=== PATIENT | female | born 1985 | race Caucasian/White ===

== ENCOUNTER 2020-08-15 21:01 | Emergency (ER) | payer OTHER ==
[~2020-08-15] VITALS: Ht 149.9 cm; Wt 90.0 kg
[2020-08-15 21:03] VITALS: BP 179/94
--- NOTE | 2020-08-15 21:55 | RAD ---
Three-view right ankle radiographs 08/15/2020 CLINICAL HISTORY: Right ankle pain. AP, lateral and oblique digital radiographs of the right ankle were obtained. The right ankle mortise is intact. No fracture or dislocation of the right ankle is seen. IMPRESSION: No fracture or dislocation of the right ankle is seen. Electronically signed by: Yuosif Garcia MD (08/15/2020 9:52 PM) [id number]
--- NOTE | 2020-08-15 22:33 | RAD ---
Right lower extremity venous duplex study 08/15/2020 Clinical History: Right ankle swelling. Technique: Using a combination of real time ultrasound imaging and color-flow and pulse Doppler imaging techniques along with graded compression and augmentation, duplex evaluation of the deep venous system of the right lower extremity was performed. Multiple images were obtained. Findings: There is no sonographic evidence of deep venous thrombosis involving the visualized deep venous structures of the right lower extremity. Impression: Negative study. Electronically signed by: Yousif Garcia MD (08/15/2020 10:30 PM) [id number]
--- NOTE | 2020-08-15 22:44 | ED.ADGEN ---
Past Medical History Past Medical History: Anxiety, Depression, GERD, Kidney Stone, Migraines Past Surgical History: Cholecystectomy, Other Additional Past Surgical Histo: 3 C-SECTIONS, ENDOMETRIOSIS, HYSTERRECTOMY Smoking Status: Current Every Day Smoker Alcohol Use: Occasionally General Adult EDM: Chief Complaint: LOWER EXTREMITY SWELLING HPI: HPI: Patient is a 35 year old female, accompanied by her significant other, who presents to the emergency room with complaints of pain and swelling in her right lower leg and ankle. Patient reports that she woke up with these symptoms she also noticed a bruise on her inner right knee but denies any known injury or recent fall. She denies any history of blood clots. The patient denies any fever, cough, chest pain, shortness of breath, body aches, or fatigue. She sta park she has been able to ambulate but reports increased pain with ambulation. Patient currently rates her pain a 1 out of 10 on the pain scale, the pain increases if the area is touched or she bears weight. Review of Systems: Review of Systems: Complete ROS is negative unless otherwise noted in HPI. Allergies: Allergies: Allergies Coded Allergies Type Severity Reaction Last Updated Verified vancomycin Allergy Severe 08/15/20 Yes Physical Exam: PE: Constitutional: Well developed, well nourished, no acute distress, non-toxic appearance, obese. [] HENT: Normocephalic, atraumatic, bilateral external ears normal, nose normal. [] Eyes: PERRLA, EOMI, conjunctiva normal, no discharge. [] Neck: Normal range of motion, no stridor. [] Cardiovascular:Heart rate regular rhythm Lungs & Thorax: Respirations even and unlabored, no retractions, no respiratory distress Skin: Warm, dry, no erythema, no rash.; 2 cm diameter bruise noted to the medial right knee [] Extremities: Right ankle: Diffuse tenderness to palpation, no crepitus, no obvious deformity, no cyanosis, ROM intact, 1+ edema; right calf tenderness to palpation, 2+ pedal pulse 2+ posterior tibial pulse, cap refill less than 2 seconds Neurologic: Alert and oriented X 3, no focal deficits noted. [] Psychologic: Affect normal, judgement normal, mood normal. [] Current Patient Data: Vital Signs: Vital Signs Date Time Temp Pulse Resp B/P (MAP) Pulse Ox O2 Delivery O2 Flow Rate FiO2 08/15/20 21:03 97.6 86 20 179/94 (122) 98 Room Air 97.6 EKG: EKG: [] Heart Score: Risk Factors: Risk Factors: DM, Current or recent (<one month) smoker, HTN, HLP, family history of CAD, obesity. Risk Scores: Score 0 - 3: 2.5% MACE over next 6 weeks - Discharge Home Score 4 - 6: 20.3% MACE over next 6 weeks - Admit for Clinical Observation Score 7 - 10: 72.7% MACE over next 6 weeks - Early Invasive Strategies Radiology/Procedures: Radiology/Procedures: PROCEDURE: VENOUS LOWER EXTREMITY RIGHT Right lower extremity venous duplex study 08/15/2020 Clinical History: Right ankle swelling. Technique: Using a combination of real time ultrasound imaging and color-flow and pulse Doppler imaging techniques along with graded compression and augmentation, duplex evaluation of the deep venous system of the right lower extremity was performed. Multiple images were obtained. Findings: There is no sonographic evidence of deep venous thrombosis involving the visualized deep venous structures of the right lower extremity. Impression: Negative study.[] PROCEDURE: ANKLE RIGHT 3V Three-view right ankle radiographs 08/15/2020 CLINICAL HISTORY: Right ankle pain. AP, lateral and oblique digital radiographs of the right ankle were obtained. The right ankle mortise is intact. No fracture or dislocation of the right ankle is seen. IMPRESSION: No fracture or dislocation of the right ankle is seen. Course & Med Decision Making: Course & Med Decision Making Pertinent Labs and Imaging studies reviewed. (See chart for details) [] Dragon Disclaimer: Dragon Disclaimer: This electronic medical record was generated, in whole or in part, using a voice recognition dictation system. Departure Departure Impression: Primary Impression: Pain and swelling of right lower extremity Disposition: 01 DC HOME SELF CARE/HOMELESS Condition: STABLE Referrals: STU ATKINSON MD Patient Instructions: Peripheral Edema Additional Instructions: Recommend application of ice, elevation, and rest of affected extremity. Follow-up with your primary care doctor or Dr. Atkinson if symptoms persist return to the ER if your symptoms worsen. [facility] [address] [place] [address] [facility] [address] [place], [place] [id number] [address] [address] [facility] [address] [place] [address] [facility] [address] [place] [address] [address] [place] [address] [address] [place] [address] [facility] [address] [place] [address] [facility] [address] [place] [address] [facility] [address] [place] [address] JUDI BANERJEE APRN Aug 15, 2020 22:44
== END 2020-08-15 23:05 | disposition home or self-care (01) ==
LOC: ER 21:01
DX: M79.661 Pain in right lower leg (principal); R22.41 Localized swelling, mass and lump, right lower limb; M25.571 Pain in right ankle and joints of right foot; K21.9 Gastro-esophageal reflux disease without esophagitis; G43.909 Migraine, unspecified, not intractable, without status migrainosus; F17.200 Nicotine dependence, unspecified, uncomplicated; Z90.49 Acquired absence of other specified parts of digestive tract; Z87.442 Personal history of urinary calculi; Z90.710 Acquired absence of both cervix and uterus; Z88.1 Allergy status to other antibiotic agents
CPT/HCPCS: 73610; 93971; 99284-25

== ENCOUNTER → 2020-08-26 | Outpatient (CLI) | payer OTHER ==
[2020-08-15 21:03] VITALS: BP 179/94
== END ==
LOC: LAB 12:22
PROVIDERS: ATTEND Internal Medicine Pulmonary Disease
DX: U07.1 COVID-19 (principal)
CPT/HCPCS: U0003

== ENCOUNTER 2020-11-07 10:49 | Emergency (ER) | payer OTHER ==
[~2020-11-07] VITALS: Ht 152.4 cm; Wt 95.9 kg
--- NOTE | 2020-11-07 11:06 | ED.ADGEN ---
Past Medical History Past Medical History: Anxiety, Depression, GERD, Kidney Stone, Migraines Past Surgical History: Cholecystectomy, Other Additional Past Surgical Histo: 3 C-SECTIONS, ENDOMETRIOSIS, HYSTERRECTOMY Smoking Status: Current Every Day Smoker Alcohol Use: Occasionally General Adult EDM: Chief Complaint: FLANK PAIN HPI: HPI: Patient is a 35-year-old female who arrives ambulatory to the emergency department complaining of bilateral flank pain. Patient reports she has had this pain for well over 2 weeks and has been told she has a nonobstructing sto ne. Patient did have a CT scan 2 weeks previously which revealed this information. The patient states she has a history of kidney stones and states she has met with urology who states at this time there is no further action to be taken. Patient states despite this she is having ongoing pain. She denies any fevers. She further denies any abdominal pain or vomiting. She is awake, alert and nontoxic-appearing. Review of Systems: Review of Systems: Constitutional: Denies fever or chills. [] Eyes: Denies change in visual acuity. [] HENT: Denies nasal congestion or sore throat. [] Respiratory: Denies cough or shortness of breath. [] Cardiovascular: Denies chest pain or edema. [] GI: Denies abdominal pain, nausea, vomiting, bloody stools or diarrhea. [] : Reports bilateral flank pain. Denies dysuria. [] Musculoskeletal: Denies back pain or joint pain. [] Integument: Denies rash. [] Neurologic: Denies headache, focal weakness or sensory changes. [] Endocrine: Denies polyuria or polydipsia. [] Lymphatic: Denies swollen glands. [] Psychiatric: Denies depression or anxiety. [] Allergies: Allergies: Allergies Coded Allergies Type Severity Reaction Last Updated Verified vancomycin Allergy Severe 08/15/20 Yes Physical Exam: PE: Constitutional: Well developed, well nourished, no acute distress, non-toxic appearance. [] HENT: Normocephalic, atraumatic, bilateral external ears normal, oropharynx moist, no oral exudates, nose normal. [] Eyes: PERRLA, EOMI, conjunctiva normal, no discharge. [] Neck: Normal range of motion, no tenderness, supple, no stridor. [] Cardiovascular:Heart rate regular rhythm, no murmur [] Lungs & Thorax: Bilateral breath sounds clear to auscultation [] Abdomen: Bowel sounds normal, soft, no tenderness, no masses, no pulsatile masses. [] Skin: Warm, dry, no erythema, no rash. [] Back: Minimal CVA tenderness bilaterally. [] Extremities: No tenderness, no cyanosis, no clubbing, ROM intact, no edema. [] Neurologic: Alert and oriented X 3, normal motor function, normal sensory function, no focal deficits noted. [] Psychologic: Affect normal, judgement normal, mood normal. [] Current Patient Data: Labs: Laboratory Tests Test 11/07/20 11:00 Urine Collection Type Unknown Urine Color Yellow Urine Clarity Clear Urine pH 7.0 (<5.0-8.0) Urine Specific [place] 1.020 (1.000-1.030) Urine Protein Negative mg/dL (NEG-TRACE) Urine Glucose (UA) Negative mg/dL (NEG) Urine Ketones (Stick) Negative mg/dL (NEG) Urine Blood Negative (NEG) Urine Nitrite Negative (NEG) Urine Bilirubin Negative (NEG) Urine Urobilinogen Dipstick 0.2 mg/dL (0.2 mg/dL) Urine Leukocyte Esterase Negative (NEG) Urine RBC Occ /HPF (0-2) Urine WBC 1-4 /HPF (0-4) Urine Squamous Epithelial Cells Mod /LPF Urine Bacteria Few /HPF (0-FEW) Urine Mucus Slight /LPF Vital Signs: Vital Signs Date Time Temp Pulse Resp B/P (MAP) Pulse Ox O2 Delivery O2 Flow Rate FiO2 11/07/20 11:06 98.1 110 18 144/99 (114) 99 Room Air 98.1 EKG: EKG: [] Heart Score: HEART Score for Chest Pain: HEART Score for Chest Pain Response (Comments) Value History Slighlty/Non-Suspicious 0 ECG Normal 0 Age < 45 0 Risk Factors 1 or 2 Risk Factors 1 Troponin < Normal Limit 0 Total 1 Risk Factors: Risk Factors: DM, Current or recent (<one month) smoker, HTN, HLP, family history of CAD, obesity. Risk Scores: Score 0 - 3: 2.5% MACE over next 6 weeks - Discharge Home Score 4 - 6: 20.3% MACE over next 6 weeks - Admit for Clinical Observation Score 7 - 10: 72.7% MACE over next 6 weeks - Early Invasive Strategies Radiology/Procedures: Radiology/Procedures: [] Course & Med Decision Making: Course & Med Decision Making Pertinent Labs and Imaging studies reviewed. (See chart for details) [] Odilon Disclaimer: Odilon Disclaimer: This electronic medical record was generated, in whole or in part, using a voice recognition dictation system. Departure Departure Impression: Primary Impression: Bilateral flank pain Additional Impression: History of kidney stones Disposition: 01 DC HOME SELF CARE/HOMELESS Condition: GOOD Referrals: KAYLAH LEA MD (PCP) Patient Instructions: Diet for Kidney Stones, Flank Pain, Kidney Stones Additional Instructions: The patient remains awake, alert and in no acute distress. I have advised that she follow-up with her urologist with respect to her ongoing flank pain. I had the opportunity to review the patient's CT scan from late last month and I have advised against continued imaging given the toll it may take on the patient. Patient denies any new symptoms relative to her complaint. Should she develop any fevers or worsening pain of advised her to return. The patient understands and has agreed to do so. She is nontoxic-appearing and stable discharge. Scripts Hydrocodone/Acetaminophen (Hydrocodone-Acetamin 5-325 mg) 1 Each Tablet 1 EACH PO Q6HRS for PAIN for 3 Days, #12 TAB Prov: MAGALIS LEZAMA DO 11/07/20 Problem Qualifiers MAGALIS LEZAMA DO Nov 07, 2020 11:06
[2020-11-07 11:16] LABS: BILIRUBIN,URINE NEGATIVE (NEG); CLARITY,URINE CLEAR; COLOR,URINE YELLOW; NITRITE,URINE NEGATIVE (NEG); PROTEIN,URINE NEGATIVE (NEG-TRACE); UROBILINOGEN,URINE 0.2 mg/dL (0.2 mg/dL)
[2020-11-07 11:26] LABS: BACTERIA,URINE FEW /HPF (0-FEW); RBC,URINE OCC /HPF (0-2)
[2020-11-07] MEDS ORDERED: HYDR-2759 PO (11:34)
== END 2020-11-07 12:01 | disposition home or self-care (01) ==
LOC: ER 10:49
DX: R10.9 Unspecified abdominal pain (principal); K21.9 Gastro-esophageal reflux disease without esophagitis; G43.909 Migraine, unspecified, not intractable, without status migrainosus; F17.200 Nicotine dependence, unspecified, uncomplicated; Z90.49 Acquired absence of other specified parts of digestive tract; Z87.442 Personal history of urinary calculi; Z88.1 Allergy status to other antibiotic agents
CPT/HCPCS: 81001; 99283